=== PATIENT | female | born 1940 | race Caucasian/White ===

== ENCOUNTER 2017-05-15 07:56 | Inpatient (IN) | payer OTHER, MEDICARE ==
[2017-04-20 13:21] VITALS: BMI 32.0
--- NOTE | 2017-04-20 13:55 | PAT Medication Instructions ---
Service Date Apr 20, 2017. Current Home Medication List Calcium Carbonate (Tums), 1 DOSE PO UD PRN for PRN Calcium Carbonate-Vitamin D (Calcium + D), 1 TAB PO QAM Cranberry-Vitamin C-Vitamin E (Cranberry Plus Vitamin C), 2 CAP PO QAM Fenofibrate (Tricor), 160 MG PO QAM Fexofenadine Hcl (Barbara), 180 MG PO DAILY PRN for ALLERGIC REACTION Fluticasone Propionate (Nasal) (Flonase Allergy Relief), 2 SPRAY TRAY UD PRN for PRN Levothyroxine Sodium (Synthroid), 25 MCG PO QAM Lorazepam (Ativan), 1 MG PO TID PRN for Anxiety Losartan Potassium (Cozaar), 100 MG PO QAM Magnesium Oxide (Mg Supplement (Magnesium Oxide), 1 TAB PO BID Multiple Vitamins W/ Minerals (One Daily For Women 50+A), 1 TAB PO QAM Oxycodone Ir (Roxicodone Ir), 1-2 TAB PO Q6 PRN for Severe Pain Polyethylene Glycol 3350 (Miralax), 17 GM PO UD PRN for PRN Sennosides-Docusate Sodium (Stool Softener), 1 TAB PO UD PRN for PRN Trazodone Hcl (Trazodone), 50 MG PO HS Medication Instructions For Your Scheduled Surgery - Hold the following medications 2 weeks prior to surgery: Cranberry-Vitamin C-Vitamin E (Cranberry Plus Vitamin C), 2 CAP PO QAM - Hold the following medications the morning of surgery: Calcium Carbonate (Tums), 1 DOSE PO UD PRN for PRN Calcium Carbonate-Vitamin D (Calcium + D), 1 TAB PO QAM Fenofibrate (Tricor), 160 MG PO QAM Losartan Potassium (Cozaar), 100 MG PO QAM Magnesium Oxide (Mg Supplement (Magnesium Oxide), 1 TAB PO BID Fexofenadine Hcl (Barbara), 180 MG PO DAILY PRN for ALLERGIC REACTION Multiple Vitamins W/ Minerals (One Daily For Women 50+A), 1 TAB PO QAM Polyethylene Glycol 3350 (Miralax), 17 GM PO UD PRN for PRN Sennosides-Docusate Sodium (Stool Softener), 1 TAB PO UD PRN for PRN - Take the following medications the morning of surgery with a sip of water OTHERWISE NOTHING EAT OR DRINK AFTER MIDNIGHT: Fluticasone Propionate (Nasal) (Flonase Allergy Relief), 2 SPRAY TRAY UD PRN for PRN Lorazepam (Ativan), 1 MG PO TID PRN for Anxiety Levothyroxine Sodium (Synthroid), 25 MCG PO QAM Oxycodone Ir (Roxicodone Ir), 1-2 TAB PO Q6 PRN for Severe Pain (may take if needed up to 4 hours prior to surgery) - Take the following medications as scheduled the night before surgery: Magnesium Oxide (Mg Supplement (Magnesium Oxide), 1 TAB PO BID Fluticasone Propionate (Nasal) (Flonase Allergy Relief), 2 SPRAY TRAY UD PRN for PRN Lorazepam (Ativan), 1 MG PO TID PRN for Anxiety Oxycodone Ir (Roxicodone Ir), 1-2 TAB PO Q6 PRN for Severe Pain Polyethylene Glycol 3350 (Miralax), 17 GM PO UD PRN for PRN Trazodone Hcl (Trazodone), 50 MG PO HS Sennosides-Docusate Sodium (Stool Softener), 1 TAB PO UD PRN for PRN If you have any questions please call us at [phone] or [phone] or [phone]
[2017-04-20 14:41] LABS: BASO % 0.5 %; BASO ABS # 0.04 K/uL (0-0.2); COMPLETE YES; EOS % 0.4 %; HEMATOCRIT 41.7 % (37-47); IG% 0.2 %; LYMPH % 14.4 %; LYMPH ABS # 1.23 K/uL (1.2-3.4); MEAN CELL VOLUME 89.3 fL (80-100); MEAN CORPUSCULAR HEMOGLOBIN 28.9 pg (25-34); MEAN CORPUSCULAR HGB CONC 32.4 g/dl (32-36); MEAN PLATELET VOLUME 11.7 fL (7.4-10.4); MONO % 8.9 %; NEUT % 75.6 %; PLATELET COUNT 212 K/uL (130-400); RED BLOOD COUNT 4.67 M/uL (4.2-5.4); WHITE BLOOD COUNT 8.57 K/uL (4.8-10.8)
[2017-04-20 14:57] LABS: URINE APPEARANCE CLEAR (CLEAR); URINE BILIRUBIN NEG (NEG); URINE COLOR DK YELLOW; URINE NITRITE NEG (NEG); URINE PH 7.5 (4.5-7.5); URINE SPECIFIC GRAVITY 1.021 (1.000-1.030); UROBILINOGEN NEG (NEG); ZZUR CULT IF INDIC CLEAN CATCH NO
[2017-04-20 15:00] LABS: BUN/CREATININE RATIO 33.7 (10-20); CALCIUM 9.4 mg/dl (8.5-10.1); CREATININE 0.54 mg/dl (0.60-1.20); POTASSIUM 4.2 mmol/L (3.5-5.1)
[2017-04-20 15:12] LABS: MANUAL MICROSCOPIC REQUIRED? NO; REVIEW REQ? NO; SULFASALICYLIC ACID NEG (NEG)
[2017-05-15] VITALS (13 sets, daily range): BP systolic 88–189; BP diastolic 56–95; PULSE 71–99; TEMP 36.3–37.6; O2SAT 96–99; Ht 149.9 cm; Wt 71.8 kg
[~2017-05-15] VITALS: Ht 149.9 cm; Wt 71.8 kg
[~2017-05-15 07:56] MED LIST: ATV/1 PO; CALC500C3 PO; CALC600T9 PO; CEFAZOLIN 1000MG IV PUSH 5 ML IV SCH; CRAN1CAP14 PO; FENO160T PO; FEXO1TAB46 PO; FLUT0.15 NAE; LACTATED RINGER'S 1000ML 1,000 ML IV SCH; LEVO25TA PO; LOSA1TAB38 PO; MAGN1TAB19 PO; MULT1TAB19 PO; OXYC1TAB3 PO; POLY335019 PO; SENNTAB23 PO; TRAZ50TA35 PO
--- NOTE | 2017-05-15 09:26 | History & Physical Bridge Note ---
H&P Re-Evaluation Bridge Note: I have examined the patient, reviewed the History & Physical and in the interval since the performance of the History & Physical I have noted the following changes of clinical significance: No changes noted
--- NOTE | 2017-05-15 09:26 | History and Physical ---
History & Physical Date May 15, 2017. Chief Complaint Chronic back and leg pain History of Present Illness The patient is a 77 year old female with complaints of chronic back and leg pain Past Medical/Surgical History Medical Problems: (1) Anxiety State Nos (2) Hypertension Nos (3) Osteoarthros Nos-Unspec (4) Spinal Stenosis, Lumbar Region, W Neurogenic Claudication Additional History Hepatic Disease: No Endocrine Disorder: No Kidney Disease: No Hypertension: No Heart Disease: No Bleeding Tendencies: No Infectious Diseases: No Allergies Coded Allergies: Codeine (Verified Allergy, Intermediate, SWELLING, 05/15/17) Acetaminophen (Verified Allergy, Mild, ITCHING, 05/15/17) Hydrocodone (Verified Allergy, Mild, ITCHING, 05/15/17) Home Medications Scheduled Calcium Carbonate-Vitamin D (Calcium + D), 1 TAB PO QAM Cranberry-Vitamin C-Vitamin E (Cranberry Plus Vitamin C), 2 CAP PO QAM Fenofibrate (Tricor), 160 MG PO QAM Levothyroxine Sodium (Synthroid), 25 MCG PO QAM Losartan Potassium (Cozaar), 100 MG PO QAM Magnesium Oxide (Mg Supplement (Magnesium Oxide), 1 TAB PO BID Multiple Vitamins W/ Minerals (One Daily For Women 50+A), 1 TAB PO QAM Trazodone Hcl (Trazodone), 50 MG PO HS Scheduled PRN Calcium Carbonate (Tums), 1 DOSE PO UD PRN for PRN Fexofenadine Hcl (Barbara), 180 MG PO DAILY PRN for ALLERGIC REACTION Fluticasone Propionate (Nasal) (Flonase Allergy Relief), 2 SPRAY TRAY UD PRN for PRN Lorazepam (Ativan), 1 MG PO TID PRN for Anxiety Oxycodone Ir (Roxicodone Ir), 1-2 TAB PO Q6 PRN for Severe Pain Polyethylene Glycol 3350 (Miralax), 17 GM PO UD PRN for PRN Sennosides-Docusate Sodium (Stool Softener), 1 TAB PO UD PRN for PRN Physical Examination Skin: warm/dry, no rash Eyes: normal inspection, EOMI, sclerae normal ENT: normal ENT inspection, pharynx normal Head: normocephalic, atraumatic Neck: supple, no adenopathy, trachea midline Respiratory/Chest: lungs clear, normal breath sounds, no respiratory distress Cardiovascular: regular rate, rhythm, no edema, no murmur Abdomen / GI: normal bowel sounds, non tender Back: normal inspection Extremities: normal inspection, normal range of motion Neurologic/Psych: no motor/sensory deficits, alert, normal reflexes, oriented x 3 Diagnosis Chronic back and leg pain Plan of Treatment Spinal cord stimulator trial
[2017-05-15] MEDS ORDERED: ATROPINE SULFATE 0.1 MG/ML 5ML SYR IV PRN (09:30)
[2017-05-15] MEDS ORDERED: NALOXONE HCL 0.4 MG/1 ML VIAL/CARP IV PRN (09:30)
[2017-05-15] MEDS ORDERED: ONDANSETRON INJ 2 MG/ML 2 ML VIAL IV PRN ×2 (09:30→11:15)
[2017-05-15] MEDS ORDERED: MEPERIDINE HCL 25 MG/ML CARP IV PRN (09:30)
[2017-05-15] MEDS ORDERED: PHENYLEPHRINE 100MCG/ML 5ML SYR IV PRN (09:30)
[2017-05-15] MEDS ORDERED: EpHEDrine SULFATE INJ 50 MG/ML AMP IV PRN (09:30)
[2017-05-15] MEDS ORDERED: FLUMAZENIL 0.1 MG/1 ML 10 ML VIAL IV PRN (09:30)
[2017-05-15] MEDS ORDERED: FENTANYL CITRATE INJ 50 MCG/1 ML 2 ML VIAL ONE ×2 (09:44→10:51)
[2017-05-15] MEDS ORDERED: MIDAZOLAM HCL 1 MG/ML 2ML VIAL ONE (09:44)
[2017-05-15] MEDS ORDERED: BACITRACIN 50000 UNIT VIAL ONE (09:47)
[2017-05-15] MEDS ORDERED: BUPIVACAINE/EPINEPHRINE 0.5% MPF 1:200,000 30 ML VIAL ONE (09:47)
[2017-05-15] MEDS ORDERED: HYDROmorphone INJ 2 MG/ML SYR/VIAL ONE (10:52)
[2017-05-15] MEDS ORDERED: LIDOCAINE HCL 2% 2 ML VIAL (20MG/ML) ONE (11:01)
[2017-05-15] MEDS ORDERED: DEXAMETHASONE SOD INJ 4 MG/ML VIAL ONE (11:01)
[2017-05-15] MEDS ORDERED: KETOROLAC TROMETHAMINE 30 MG/ML VIAL ONE (11:01)
[2017-05-15] MEDS ORDERED: GLYCOPYRROLATE INJ 0.2 MG/ML VIAL ONE (11:01)
[2017-05-15] MEDS ORDERED: PROPOFOL IV EMULSION 10 MG/ML 20 ML VIAL IV ONE (11:01)
[2017-05-15] MEDS ORDERED: ROCURONIUM BROMIDE 10 MG/ML 5 ML VIAL IV ONE (11:01)
[2017-05-15] MEDS ORDERED: ONDANSETRON INJ 2 MG/ML 2 ML VIAL ONE (11:01)
[2017-05-15] MEDS ORDERED: NEOSTIGMINE METHYLSULFATE 1 MG/ML 10ML VIAL ONE (11:01)
[2017-05-15] MEDS ORDERED: FLOSEAL HEMOSTATIC MATRIX 5ML TOP ONE (11:11)
[2017-05-15] MEDS ORDERED: DOCUSATE SODIUM/SENNA 50/8.6MG TAB PO PRN (11:15)
[2017-05-15] MEDS ORDERED: DO NOT ADMINISTER PNEUMOCOCCAL VACCINE PRN ×2 (11:15)
[2017-05-15] MEDS ORDERED: DO NOT ADMINISTER FLU VACCINE PRN ×3 (11:15)
[2017-05-15] MEDS ORDERED: FLUTICASONE PROPIONATE NA SPR 16 GM BTL NAE PRN (11:15)
[2017-05-15] MEDS ORDERED: LORAZEPAM 1 MG TAB PO PRN ×2 (11:15)
[2017-05-15] MEDS ORDERED: MAGNESIUM HYDROXIDE SUSP 30 ML UDC PO PRN (11:15)
[2017-05-15] MEDS ORDERED: FEXOFENADINE HCL 180 MG TAB PO PRN (11:15)
--- NOTE | 2017-05-15 11:17 | DIAGNOSTIC IMAGING REPORT ---
SPINE ONE VIEW, ANY LEVEL HISTORY: Bio stimulator placement. FLUOROSCOPY TIME: 8 seconds. FINDINGS: Intraoperative fluoroscopy was provided for the lumbar spine. 1 fluoroscopic spot images were obtained. IMPRESSION: Fluoroscopy provided for an electrode placement The above report was generated using voice recognition software. It may contain grammatical, syntax or spelling errors. Electronically signed by: Yan Lui M.D. 05/15/2017 11:16 AM Dictated Date/Time: 05/15/2017 11:15 AM
--- NOTE | 2017-05-15 11:18 | [facility] Operative Report ---
Operative Report Operative Date May 15, 2017. Pre-Operative Diagnosis Lumbar post-laminectomy syndrome Post-Operative Diagnosis Same as preop Procedure(s) Performed #1 T10 laminotomy. #2 placement of 16-lead dorsal column stimulator paddle with temporary lead attachments. Surgeon Dr. Campbell Hand Riveter Surgeon(s) Shama Eckert PA-C Estimated Blood Loss 30 ml Findings None Specimens Nonoe per Surgeon Description of Procedure Patient was met with preoperatively case discussed all questions addressed. After informed consent was obtained patient was taken to the operative suite underwent intubation placed in a prone position the Josh table on top Luis A frame. All bony prominences well-padded eyes inspected to ensure no external pressure. With the assistance of fluoroscopy identified the T10 11 interlaminar space and placed a midline incision overlying this region. Sharp dissection with the assistance of Bovie cautery was performed onto an exposing the T10 11 interlaminar space. Self retaining retractor was placed. Then performed a midline decompression laminotomy T10 large enough to place the paddle lead. The lead was placed. Verified our position with fluoroscopy. It was then sewn into position with 2-0 silk. Temporary leads were attached tunneled to the left flank. Incision was in copious irrigated closed with subcutaneous Vicryl and Monocryl for final skin closure. Sterile dressing was placed. Patient we can take PACU stable condition. Please note Shama Sanches was present at the entire procedure involved in patient positioning complex portions of the surgery and final skin closure. I attest to the content of the Intraoperative Record and any orders documented therein. Any exceptions are noted below.
[2017-05-15] MEDS: FENTANYL CITRATE INJ 50 MCG/1 ML 2 ML VIAL IV PRN ×4 (11:33→11:54)
[2017-05-15] MEDS: LABETALOL HCL IV 5 MG/ML 20ML IV PRN ×3 (11:34→11:46)
[2017-05-15] MEDS: HYDROmorphone INJ 0.5 MG/0.5 ML SYR IV PRN ×2 (12:05→12:10)
[2017-05-15] MEDS ORDERED: LORAZEPAM 2 MG/ML 1 ML VIAL ONE (12:40)
--- NOTE | 2017-05-15 12:40 | Anesthesiology Progress Note ---
Anesthesia Post Op Note Date & Time May 15, 2017 at 12:39 Vital Signs Pain Intensity: 3 Vital Signs Past 12 Hours Date Time Temp Pulse Resp B/P (MAP) Pulse Ox O2 Delivery O2 Flow Rate FiO2 05/15/17 12:10 64 21 189/114 98 Nasal Cannula 2 05/15/17 12:00 68 18 220/107 99 Nasal Cannula 2 05/15/17 11:50 67 15 161/85 100 Nasal Cannula 2 05/15/17 11:40 70 16 211/101 100 Oxymask 10 05/15/17 11:30 67 18 218/98 100 Oxymask 10 05/15/17 11:21 36.2 94 16 193/90 96 Oxymask 10 05/15/17 08:25 36.7 75 20 185/95 (125) 96 Notes Mental Status: alert / awake / arousable, participated in evaluation Pt Amnestic to Procedure: Yes Nausea / Vomiting: adequately controlled Pain: adequately controlled, improving with treatment Airway Patency, RR, SpO2: stable & adequate BP & HR: stable & adequate, see Notes Hydration State: stable & adequate Anesthetic Complications: no major complications apparent The patient is awake and her pain is getting under control. The [employer] rep. will continue to adjust her pain pump on the floor. Her blood pressure is now 180/60 which is close to her baseline. Her other vital signs are stable.
[2017-05-15] MEDS: LORAZEPAM INJ 1 MG in SYRINGE 0.5 ML IV PRN (12:42)
[2017-05-15] MEDS ORDERED: SODIUM CHLORIDE 0.9% 1000ML 1,000 ML IV SCH (14:00)
[2017-05-15] MEDS: OXYCODONE HCL IR 5 MG TAB (IMMEDIATE RELEASE) PO PRN (14:15)
[2017-05-15] MEDS: HYDROmorphone INJ 1 MG/ML SYR IV PRN ×2 (15:07→16:05)
[2017-05-15] MEDS: CEFAZOLIN IV 1,000 MG in SYRINGE 0 ML IV SCH (18:11)
[2017-05-15] MEDS: HYDROmorphone INJ 2 MG/ML SYR/VIAL IV PRN ×2 (19:14→22:37)
[2017-05-15] MEDS: TRAZODONE HCL 50 MG TAB PO SCH (21:10)
[2017-05-15] MEDS: DOCUSATE SODIUM 100 MG CAP PO SCH (21:10)
[2017-05-15] MEDS ORDERED: NURSING VERBAL MED ORDER ONE (21:15)
[2017-05-16] VITALS (10 sets, daily range): BP systolic 140–211; BP diastolic 78–108; PULSE 88–114; TEMP 36.5–37.3; O2SAT 90–97
[2017-05-16] MEDS: OXYCODONE HCL IR 5 MG TAB (IMMEDIATE RELEASE) PO PRN ×4 (00:01→21:54)
[2017-05-16] MEDS: HYDROmorphone INJ 2 MG/ML SYR/VIAL IV PRN ×6 (01:11→23:20)
[2017-05-16] MEDS: CEFAZOLIN IV 1,000 MG in SYRINGE 0 ML IV SCH ×2 (01:28→09:19)
[2017-05-16] MEDS: LEVOTHYROXINE 25 MCG TAB PO SCH (06:11)
--- NOTE | 2017-05-16 08:04 | Anesthesiology Progress Note ---
Anesthesia Post Op Note Date & Time May 16, 2017 at 08:04 Vital Signs Pain Intensity: 2.0 Vital Signs Past 12 Hours Date Time Temp Pulse Resp B/P (MAP) Pulse Ox O2 Delivery O2 Flow Rate FiO2 05/16/17 07:05 Nasal Cannula 1.5 05/16/17 03:23 36.8 89 18 152/82 (105) 95 Nasal Cannula 2.0 05/15/17 23:45 37.6 86 18 138/84 (102) 99 Nasal Cannula 2.0 05/15/17 23:45 Nasal Cannula 05/15/17 20:47 37.4 79 17 166/83 (110) 97 Nasal Cannula 3.0 Notes Mental Status: alert / awake / arousable, participated in evaluation Pt Amnestic to Procedure: Yes Nausea / Vomiting: adequately controlled Pain: adequately controlled Airway Patency, RR, SpO2: stable & adequate BP & HR: stable & adequate Hydration State: stable & adequate Anesthetic Complications: no major complications apparent
[2017-05-16] MEDS: DOCUSATE SODIUM 100 MG CAP PO SCH ×2 (08:30→21:48)
[2017-05-16] MEDS: LOSARTAN POTASSIUM 50 MG TAB PO SCH (08:30)
[2017-05-16] MEDS ORDERED: RXC5 PO (09:21)
--- NOTE | 2017-05-16 09:21 | Discharge Instructions ---
Discharge Instructions Date of Service May 16, 2017. Admission Reason for Admission: Lumbar Post-Laminectomy Syndrome Discharge Discharge Diagnosis / Problem: chronic back pain Discharge Goals Goal(s): Improve function Activity Recommendations Activity Limitations: per Instructions/Follow-up section . Instructions / Follow-Up Instructions / Follow-Up ACTIVITY RECOMMENDATIONS: SELF CARE INSTRUCTIONS AFTER A LAMINECTOMY 1. No prolonged sitting (less than 30 minutes for the first 3 weeks after surgery). 2. No bending, lifting more than 5 pounds, or twisting (roll like a log when turning in bed). 3. You may shower 3 days after surgery if no drainage from wound. Thoroughly dry wound. Do not soak in the tub. 4. Please walk as much as you can for exercise. Gradually increase the distance that you walk as your endurance increases. 5. You may drive in 7-10 days if you are comfortable and no longer requiring pain medications. SPECIAL CARE INSTRUCTIONS: VERY IMPORTANT TO READ AND REVIEW A. Your surgical incision has been closed with a cosmetic suture under the skin that will dissolve in about 6 weeks. In 14 days, you can use a pair of clean scissors and cut the suture that is left outside of the skin at the ends of your incision. B. Complications are uncommon, but please contact us if you have any signs or symptoms of: 1. wound infection (fever higher than 102.5 degrees F, redness, separation of wound, drainage, or increasing pain from the incision) 2. blood clots in legs (pain, swelling, redness and warmth in legs) 3. urinary tract infection (fever higher than 102.5 degrees, burning upon urination or increased frequency of urination) 4. nerve problems (inability to walk on your toes or heels, numbness, loss of bowel or bladder control) 5. any other symptoms that concern you. C. Please call the office at if you have any concerns or questions about your operation or recovery. MANAGING PAIN AFTER SPINAL SURGERY 1. Narcotic medication is intended for short-term use and will be provided for surgical pain. Surgical pain usually lasts for a period of 4-6 weeks. Narcotic medication includes Percocet, Vicodin, Darvocet, Tylenol #3 or Lortab. 2. Longer-term pain is more appropriately treated with non-narcotic medication such as Tylenol ES. 3. Muscle spasm is not appropriately treated with narcotics. Muscle relaxers such as Soma, Flexeril or Skelaxin can be used along with Tylenol ES. 4. Remember that we all live with some "aches and pains". This is not unusual or uncommon after an injury or as we get older. 5. We will provide appropriate medication within the normal guidelines of their prescribed use. We will also be very cautious and aware of potential abuse and extended duration of patients' medication needs. 6. Please allow 2-3 days to process refills. Prescriptions will not be mailed but must be picked up at the office. FOLLOW UP VISIT: Keep your scheduled follow-up appointment. Any questions, please call the office at . Current Hospital Diet Patient's current hospital diet: Regular Diet Discharge Diet Recommended Diet: Regular Diet Procedures Procedures Performed: #1 T10 laminotomy. #2 placement of 16-lead dorsal column stimulator paddle with temporary lead attachments. Pending Studies Studies pending at discharge: no Medical Emergencies . Who to Call and When: Medical Emergencies: If at any time you feel your situation is an emergency, please call 911 immediately. . Non-Emergent Contact Non-Emergency issues call your: Primary Care Provider . "Provider Documentation" section prepared by Romero Campbell. . VTE Core Measure Inpt VTE Proph given/why not?: Angelique Spears, SCD's
--- NOTE | 2017-05-16 12:29 | Progress Note ---
Progress Note Date of Service May 16, 2017. Progress Note Patient states that her majority of symptoms have improved with the stimulator. She did undergo further adjustments today. At this point we'll plan for implantation of the battery tomorrow if she is getting positive results. She will made nothing by mouth the night.
--- NOTE | 2017-05-16 16:50 | Anesthesiology Progress Note ---
Anesthesia Progress Note Date of Service May 16, 2017. Progress Notes The patient is a 73 y/o female scheduled for spinal cord stimulator placement tomorrow. She underwent surgery for spinal cord stimulator placement yesterday. She was noted to be a difficult airway, but easy to mask ventilate and easy to intubate with Glidescope #3. She had no other anesthesia problems. She complains of some surgical site pain and abdominal gas, but is otherwise doing well. She was consented for general anesthesia and was counseled to remain NPO after midnight tonight except for sips of water with pills.
[2017-05-16] MEDS: HYDROmorphone INJ 1 MG/ML SYR IV PRN (18:18)
[2017-05-16] MEDS: LORAZEPAM INJ 1 MG in SYRINGE 0.5 ML IV PRN (19:48)
[2017-05-16] MEDS: TRAZODONE HCL 50 MG TAB PO SCH (21:48)
[2017-05-17] VITALS (10 sets, daily range): BP systolic 129–196; BP diastolic 78–123; PULSE 70–110; TEMP 36.7–37.1; O2SAT 91–100
[2017-05-17] MEDS: HYDROmorphone INJ 2 MG/ML SYR/VIAL IV PRN ×2 (02:38→06:31)
[2017-05-17] MEDS: LORAZEPAM INJ 1 MG in SYRINGE 0.5 ML IV PRN (04:54)
[2017-05-17] MEDS ORDERED: BISACODYL 10 MG SUPP PR PRN (06:00)
[2017-05-17] MEDS: LEVOTHYROXINE 25 MCG TAB PO SCH (06:00)
[2017-05-17] MEDS ORDERED: BISACODYL 5 MG TABEC PO PRN (06:00)
[2017-05-17] MEDS ORDERED: MIDAZOLAM HCL 1 MG/ML 2ML VIAL ONE (06:51)
[2017-05-17] MEDS ORDERED: FENTANYL CITRATE INJ 50 MCG/1 ML 2 ML VIAL ONE ×2 (06:51→07:54)
[2017-05-17] MEDS ORDERED: BUPIVACAINE/EPINEPHRINE 0.5% MPF 1:200,000 30 ML VIAL ONE (07:03)
[2017-05-17] MEDS ORDERED: BACITRACIN 50000 UNIT VIAL ONE (07:03)
[2017-05-17] MEDS ORDERED: CEFAZOLIN SOD 2000MG/10 ML IV PUSH IV ONE (07:22)
[2017-05-17] MEDS ORDERED: NURSING VERBAL MED ORDER STA (07:27)
[2017-05-17] MEDS ORDERED: EpHEDrine SULFATE INJ 50 MG/ML AMP IV PRN (07:30)
[2017-05-17] MEDS ORDERED: ATROPINE SULFATE 0.1 MG/ML 5ML SYR IV PRN (07:30)
[2017-05-17] MEDS ORDERED: ONDANSETRON INJ 2 MG/ML 2 ML VIAL IV PRN (07:30)
[2017-05-17] MEDS ORDERED: HYDROmorphone INJ 1 MG/ML SYR IV PRN (08:00)
[2017-05-17] MEDS ORDERED: LORAZEPAM INJ 0.5 MG in SYRINGE 0.25 ML IV PRN (08:00)
[2017-05-17] MEDS ORDERED: HYDROmorphone INJ 2 MG/ML SYR/VIAL ONE (08:05)
[2017-05-17] MEDS ORDERED: FLOSEAL HEMOSTATIC MATRIX 10ML TOP ONE (08:10)
[2017-05-17] MEDS: FENTANYL CITRATE INJ 50 MCG/1 ML 2 ML VIAL IV PRN ×2 (08:44→08:51)
[2017-05-17] MEDS ORDERED: POLYETHYLENE (MIRALAX) 17 GM PACK PO SCH (09:00)
--- NOTE | 2017-05-17 09:05 | [facility] Operative Report ---
Operative Report Operative Date May 17, 2017. Pre-Operative Diagnosis Chronic Back and Leg Pain Post-Operative Diagnosis Chronic Back and Leg Pain Procedure(s) Performed #1 removal of temporary spinal cord stimulator leads. #2 implantation of Rechargeable Spinal Cord Sterile Manner Battery Surgeon Dr. Campbell Field Coil Winder Surgeon(s) Shama Eckert PA-C Estimated Blood Loss 30 ml Findings None Specimens none per surgeon Description of Procedure Patient was met with preoperatively case discussed all questions addressed. After informed consent obtained patient was taken to the operative suite underwent intubation and placed in a prone position the Josh table on top Luis A frame. All bony promises well-padded eyes inspected to ensure no external pressure placed upon them. This point the thoracal lumbar spine is prepped draped in normal sterile fashion. I then opened the laminotomy site removed the temporary leads. They were detached and removed. I then created a pocket over the right flank large enough to contain the battery. The leads were then passed into the battery pocket site by way of a trocar. There attached the battery and tested for efficacy. After this complete the battery was placed within the pocket all incisions copiously irrigated and closed the subcutaneous Vicryl and Monocryl for final skin closure. Steri-Strips sterile dressings placed. Patient we can take PACU stable condition. Please note Shama Sanches was present throughout the entire procedure involved in patient positioning complex portions of the surgery and final skin closure. I attest to the content of the Intraoperative Record and any orders documented therein. Any exceptions are noted below.
--- NOTE | 2017-05-17 09:08 | Discharge Summary ---
Orthopedic Discharge Summary Admission Date/Reason May 15, 2017 at 08:45 Lumbar Post-Laminectomy Syndrome. Discharge Date/Disposition May 17, 2017 Home Diagnosis Principal Diagnosis: Chronic back and leg pain Admission Physical Exam As per Admitting History & Physical. Hospital Course Patient underwent spinal cord stimulator trial on Monday. She felt that she was obtaining improvement of her back and buttock pain with the device. Substernally she elected to have permanent implantation. She underwent this on Monday tolerated well and was socially discharge home. Discharge orders and instructions found the chart for further review. Discharge Instructions Please refer to the electronic Patient Visit Report (Discharge Instructions) for additional information.
--- NOTE | 2017-05-17 09:34 | Anesthesiology Progress Note ---
Anesthesia Post Op Note Date & Time May 17, 2017 at 09:33 Vital Signs Pain Intensity: 4 Vital Signs Past 12 Hours Date Time Temp Pulse Resp B/P (MAP) Pulse Ox O2 Delivery O2 Flow Rate FiO2 05/17/17 09:15 81 20 163/81 99 Nasal Cannula 2 05/17/17 09:00 36.8 81 14 166/76 97 Nasal Cannula 2 05/17/17 08:50 78 12 144/75 98 Oxymask 10 05/17/17 08:40 79 23 154/83 99 Oxymask 10 05/17/17 08:33 36.7 81 14 152/80 99 Oxymask 10 05/17/17 06:39 104 16 182/89 (120) Room Air 05/17/17 06:32 37.1 110 16 196/123 (147) 91 Room Air 05/16/17 23:45 Room Air 05/16/17 23:40 108 16 148/80 (102) Room Air 05/16/17 23:18 114 208/107 (140) 05/16/17 23:15 37.3 110 18 211/108 (142) 97 Room Air 05/16/17 21:50 36.7 Notes Mental Status: alert / awake / arousable, participated in evaluation Pt Amnestic to Procedure: Yes Nausea / Vomiting: adequately controlled Pain: adequately controlled Airway Patency, RR, SpO2: stable & adequate BP & HR: stable & adequate Hydration State: stable & adequate Anesthetic Complications: no major complications apparent
[2017-05-17] MEDS: LOSARTAN POTASSIUM 50 MG TAB PO SCH (10:19)
[2017-05-17] MEDS: DOCUSATE SODIUM 100 MG CAP PO SCH (10:19)
[2017-05-17] MEDS ORDERED: EpHEDrine SULFATE 50MG/5ML SYR ONE (12:37)
[2017-05-17] MEDS ORDERED: ROCURONIUM BROMIDE 10 MG/ML 5 ML VIAL IV ONE (12:37)
[2017-05-17] MEDS ORDERED: LABETALOL HCL IV 5 MG/ML 20ML IV ONE (12:37)
[2017-05-17] MEDS ORDERED: GLYCOPYRROLATE INJ 0.2 MG/ML VIAL ONE (12:37)
[2017-05-17] MEDS ORDERED: PHENYLEPHRINE 100MCG/ML 5ML SYR ONE (12:37)
[2017-05-17] MEDS ORDERED: PROPOFOL IV EMULSION 10 MG/ML 20 ML VIAL IV ONE (12:37)
[2017-05-17] MEDS ORDERED: KETOROLAC TROMETHAMINE 30 MG/ML VIAL ONE (12:37)
[2017-05-17] MEDS ORDERED: NEOSTIGMINE METHYLSULFATE 1 MG/ML 10ML VIAL ONE (12:37)
[2017-05-17] MEDS ORDERED: METOPROLOL TARTRATE 1 MG/ML VIAL ONE (12:37)
[2017-05-17] MEDS ORDERED: ONDANSETRON INJ 2 MG/ML 2 ML VIAL ONE (12:37)
[2017-05-17] MEDS ORDERED: LIDOCAINE HCL 2% 2 ML VIAL (20MG/ML) ONE (12:37)
[2017-05-17] MEDS: OXYCODONE HCL IR 5 MG TAB (IMMEDIATE RELEASE) PO PRN (14:10)
[2017-05-17] MEDS: HYDROmorphone INJ 1 MG/ML SYR IV PRN (17:24)
== END 2017-05-17 17:38 | DRG 518 ==
LOC: C.ACU 07:56 → C.3E 08:45 → ENRESERV 12:07
PROVIDERS: ADMIT Orthopaedic Surgery Orthopaedic Surgery of the Spine; ATTEND Orthopaedic Surgery Orthopaedic Surgery of the Spine
PROC: 00HV0MZ Insertion of Neurostimulator Lead into Spinal Cord, Open Approach (ICD-10-PCS; principal; 2017-05-15 10:15)
PROC: 00PV0MZ Removal of Neurostimulator Lead from Spinal Cord, Open Approach (ICD-10-PCS; 2017-05-17)
PROC: 0JPT0MZ Removal of Stimulator Generator from Trunk Subcutaneous Tissue and Fascia, Open Approach (ICD-10-PCS; 2017-05-17)
PROC: 0JH Subcutaneous Tissue and Fascia, Insertion (ICD-10-PCS; 2017-05-17)
PROC: 00HV0MZ Insertion of Neurostimulator Lead into Spinal Cord, Open Approach (ICD-10-PCS; 2017-05-17)
DX: M96.1 Postlaminectomy syndrome, not elsewhere classified (principal); Y83.8 Other surgical procedures as the cause of abnormal reaction of the patient, or of later complication, without mention of misadventure at the time of the procedure; I10 Essential (primary) hypertension; E78.5 Hyperlipidemia, unspecified; K21.9 Gastro-esophageal reflux disease without esophagitis; F41.9 Anxiety disorder, unspecified; F32.9 Major depressive disorder, single episode, unspecified; E66.9 Obesity, unspecified; Z68.32 Body mass index [BMI] 32.0-32.9, adult; Z98.1 Arthrodesis status; Z79.891 Long term (current) use of opiate analgesic; Z79.899 Other long term (current) drug therapy